=== PATIENT | female | born 1955 | race Caucasian/White ===

== ENCOUNTER 2016-10-24 14:45 | Emergency (ER) | payer BC ==
[2016-10-24 14:56] VITALS: BP 143/82
--- NOTE | 2016-10-24 15:07 | UC ---
Skin Complaint HPI - HPI Summary HPI Summary: The patient comes in today for: 1. Chemical burn: Onset: 11 days ago. Palliative/provocative: Nothing makes it better or worse. Quality: No pain. Region: Dorsum of the right foot. Severity: 0/10 Time: Constant. Associated symptoms: Discharge: None. Event: She was spraying Easy-Off on an outside grill. Some of the fluid landed on her foot. But, she did not notice right away. About 30 minutes later , it felt irritated. At that time, she only saw redness. The next day, there was a scab. No pain at that time. She started applying the Neosporin about 6 days ago. Last tetanus vaccine: 8 years ago. Patient states that she only has nausea when sulfa drugs are taken internally. * - History of Current Complaint Chief Complaint: UCBurn Time Seen by Provider: 10/24/16 15:01 Stated Complaint: BURN ON FOOT Hx Obtained From: Patient - Allergy/Home Medications Allergies/Adverse Reactions: Allergies Allergy/AdvReac Type Severity Reaction Status Date / Time Codeine Allergy Severe Nausea Verified 10/24/16 14:57 Sulfa Drugs Allergy Severe Nausea Verified 10/24/16 14:57 Bee Venom Allergy Anaphylatic Verified 10/24/16 14:57 Shock Peanut-containing Drug Allergy Anaphylatic Verified 10/24/16 14:57 Products Shock Home Medications: Home Medications Calcium 600 mg PO DAILY 10/24/16 [History Confirmed 10/24/16] Coenzyme Q10 (Ubidecarenone) [Coq-10] 300 mg PO DAILY 10/24/16 [History Confirmed 10/24/16] Review of Systems Constitutional: Negative Skin: Rash Eyes: Negative ENT: Negative Respiratory: Negative Cardiovascular: Negative Gastrointestinal: Negative Genitourinary: Negative Motor: Negative All Other Systems Reviewed And Are Negative: Yes PMH/Surg Hx/FS Hx/Imm Hx Previously Healthy: Yes Other Endocrine History: No DM, thyroid, Other Cardiovascular History: No HTN, or CAD Other Respiratory History: No asthma, or hemoptysis. Other GI/ History: No GERD, or gastric ulcer, or renal disease. Other Neurological History: No seizures or strokes. Other Psychological History: No anxiety or depression Other Cancer History: No cancers Other History Of: Negative For: HIV, Hepatitis B, Hepatitis C, Anticoagulant Therapy - Surgical History Surgical History: Yes Surgery Procedure, Year, and Place: ectopic 1990, 1992 - Family History Known Family History: Positive: Diabetes Negative: Cardiac Disease, Hypertension - Social History Occupation: Employed Full-time Alcohol Use: None Substance Use Type: None Smoking Status (MU): Never Smoked Tobacco Physical Exam Triage Information Reviewed: Yes Appearance: Well-Appearing, No Pain Distress, Well-Nourished Vital Signs: Initial Vital Signs Temp 98.3 F 10/24/16 14:53 Pulse 63 10/24/16 14:53 Resp 16 10/24/16 14:53 BP 143/82 10/24/16 14:53 Vital Signs Reviewed: Yes Eyes: Positive: Conjunctiva Clear. Negative: Discharge ENT: Positive: Hearing grossly normal, Other: - Right ear: TM ramirez and translucent Left ear: Cerumen build-up present. Negative: Pharyngeal erythema, Nasal congestion, Nasal drainage, Tonsillar swelling, Tonsillar exudate Dental: Negative: Gross Decay/Caries @, Dental Fracture @ Neck: Positive: Supple, Nontender, No Lymphadenopathy. Negative: Nuchal Rigidity Respiratory: Positive: Chest non-tender, Lungs clear, No respiratory distress, No accessory muscle use. Negative: Rhonchi, Wheezing Cardiovascular: Positive: RRR, No Murmur Abdomen Description: Negative: Nontender, No Organomegaly, Soft, Distended, Guarding Musculoskeletal: Positive: Strength Intact, ROM Intact, Edema @ - There is slight edema around the full-thickness ulcer. Neurological: Positive: Alert, Muscle Tone Normal Psychological: Positive: Age Appropriate Behavior, Consolable Skin: Positive: breakdown - He has a 1.25 cm in diameter full thickness ulcer on the dorsum of the left foot. There is no bleeding and no tenderness. There is an appropriate ring of redness around the edge, but it is more laterally and the superior edge. No discharge and no tenderness.. Negative: rashes Course/Dx - Course Course Of Treatment: Patient was told that some of the redness around her ulcer was more than I expected, but thought it may be from the Neomycin ointment and not from an infection since it was not tender. She is to stop the Neosporin and apply the silvadine and be re-evaluated in several days. She gets worse ( increasing redness or tenderness), she needs to be seen sooner. Dressing applied and she was told to inspect the wound daily and dress it as I did today. - Differential Diagnoses - Skin Complaint Differential Diagnoses: Impetigo, Tinea - Diagnoses Provider Diagnoses: full thickness chemical burn, dorsum of the left foot. Discharge - Discharge Plan Condition: Stable Disposition: HOME Patient Education Materials: Chemical Skin Burn (ED)
[2016-10-24] MEDS ORDERED: Silver Sulfadiazine 1%* 20 GM TOPICAL ONE (15:25)
== END 2016-10-24 15:45 | disposition home or self-care (01) ==
LOC: UCEAST 14:45
DX: T25.322A Burn of third degree of left foot, initial encounter (principal); Z88.5 Allergy status to narcotic agent; Z88.2 Allergy status to sulfonamides; Z91.030 Bee allergy status; Z91.010 Allergy to peanuts
CPT/HCPCS: 99212; A9270-GY; G0463

== ENCOUNTER 2017-01-04 20:31 | Emergency (ER) | payer BC ==
[2017-01-04 20:37] VITALS: BP 123/72
[2017-01-04] MEDS ORDERED: diPHENhydraMINE PO* 25 MG PO ONE (20:45)
[2017-01-04] MEDS ORDERED: predniSONE TAB* 20 MG PO ONE (20:45)
--- NOTE | 2017-01-04 20:45 | UC ---
Allergic Reaction HPI - HPI Summary HPI Summary: stung by a be on left knee---took 25 mg of benadryl and came to urgent care concerned as she has had sever reaction in the past---slight itching hives - History of Current Complaint Chief Complaint: UCAllergicReaction Stated Complaint: BEE STING - ALLERGIC Time Seen by Provider: 01/04/17 20:39 Hx Obtained From: Patient ?: No Onset/Duration: Sudden Onset, Lasting Hours, Still Present Severity Initially: Mild Severity Currently: Moderate Location: Discrete @ - left knee Character: Hives - slight general hives on arms and abdomen Aggrevating Factor(s): Nothing Alleviating Factor(s): Nothing Associated Signs And Symptoms: Positive: Negative - Allergies/Home Medications Allergies/Adverse Reactions: Allergies Allergy/AdvReac Type Severity Reaction Status Date / Time Codeine Allergy Severe Nausea Verified 10/24/16 14:57 Sulfa Drugs Allergy Severe Nausea Verified 10/24/16 14:57 Bee Venom Allergy Anaphylatic Verified 10/24/16 14:57 Shock Peanut-containing Drug Allergy Anaphylatic Verified 10/24/16 14:57 Products Shock Home Medications: Home Medications Diphenhydramine HCl [Benadryl Allergy 25 MG CAP] 25 mg PO 01/04/17 [History] PMH/Surg Hx/FS Hx/Imm Hx Previously Healthy: Yes Other History Of: Negative For: HIV, Hepatitis B, Hepatitis C, Anticoagulant Therapy - Surgical History Surgical History: Yes Surgery Procedure, Year, and Place: ectopic 1990, 1992 - Family History Known Family History: Positive: Diabetes Negative: Cardiac Disease, Hypertension - Social History Occupation: Employed Full-time Lives: With Family Alcohol Use: Occasionally Substance Use Type: None Smoking Status (MU): Current Every Day Smoker Have You Smoked in the Last Year: Yes Cessation Counseling: Counseled 3+Min - 10 Min - Immunization History Hx Tetanus, Diphtheria Vaccination: No Vaccination Up to Date: No Review of Systems Constitutional: Negative Skin: Rash - arms, abd and back, Other - erythema left knee Eyes: Negative ENT: Negative Respiratory: Negative Cardiovascular: Negative Gastrointestinal: Negative Genitourinary: Negative Motor: Negative Neurovascular: Negative Musculoskeletal: Negative Neurological: Negative Psychological: Negative All Other Systems Reviewed And Are Negative: Yes Physical Exam Triage Information Reviewed: Yes Appearance: Well-Appearing, No Pain Distress, Well-Nourished Vital Signs: Initial Vital Signs Temp 99.5 F 01/04/17 20:32 Pulse 127 01/04/17 20:32 Resp 18 01/04/17 20:32 BP 123/72 01/04/17 20:32 Pulse Ox 99 01/04/17 20:32 Vital Signs Reviewed: Yes Eye Exam: Normal ENT Exam: Normal ENT: Positive: Normal ENT inspection, Hearing grossly normal, Pharynx normal, TMs normal. Negative: Nasal congestion, Nasal drainage, Trismus, Muffled/ hoarse voice Dental Exam: Normal Neck exam: Normal Neck: Positive: Supple, Nontender, No Lymphadenopathy Respiratory Exam: Normal Respiratory: Positive: Chest non-tender, Lungs clear, Normal breath sounds, No respiratory distress, No accessory muscle use Cardiovascular Exam: Normal Cardiovascular: Positive: RRR, No Murmur, Pulses Normal, Brisk Capillary Refill Musculoskeletal Exam: Normal Musculoskeletal: Positive: Strength Intact, ROM Intact, No Edema Neurological Exam: Normal Neurological: Positive: Alert, Fatigued Psychological Exam: Normal Skin: Positive: Other - hives arm, abdomen, back, erythema right knee Re-Evaluation - Re-Evaluation First Eval Change: Improved - symptoms resolced---lungs cta Allergic Reaction Course/Dx - Course Course Of Treatment: prednisone burst dose, benadryl, follow with pcp prn - Differential Dx/Diagnosis Differential Diagnosis/HQI/PQRI: Anaphylaxis, Angioedema, Local Allergic Reaction, Urticaria Provider Diagnoses: reaction to bee sting Discharge - Discharge Plan Condition: Stable Disposition: HOME Prescriptions: Epinephrine [Epipen 2-Wesley] 0.3 mg IM ONCE PRN #1 inj PRN Reason: allergic reaction predniSONE TAB* [Deltasone TAB*] 10 mg PO DAILY #9 tab Patient Education Materials: Prednisone (By mouth), Diphenhydramine (By mouth) , How to Stop Smoking (ED), Insect Bite or Sting (ED) Referrals: Stacie Pantoja MD [Primary Care Provider] - If Needed
[2017-01-04] MEDS ORDERED: diPHENhydraMINE IV* 50 MG/ML 1 ml VIAL (BENADRYL) IM ONE (21:05)
== END 2017-01-04 21:41 | disposition home or self-care (01) ==
LOC: UCEAST 20:31
DX: T63.441A Toxic effect of venom of bees, accidental (unintentional), initial encounter (principal); Z88.5 Allergy status to narcotic agent; Z88.2 Allergy status to sulfonamides; Z91.030 Bee allergy status; Z91.010 Allergy to peanuts; F17.210 Nicotine dependence, cigarettes, uncomplicated
CPT/HCPCS: 99212; G0463; J1200; J7512